=== PATIENT | female | born 1975 | race Caucasian/White ===

== ENCOUNTER 2023-06-14 08:17 | Emergency (ER) | payer BC, SELFPAY ==
[2023-06-14] VITALS (7 sets, daily range): BP systolic 109–126; BP diastolic 63–76; PULSE 71–82; RESP 18; TEMP 36.8; O2SAT 96–99; BMI 30.4
--- NOTE | 2023-06-14 08:45 | PC.NURSE ---
Pt reports new urinary retention begining april 23. At that time pt went to [facility] and had a catheter placed. She was seen for follow up a week later and catheter removed with referral to urology. Pt reports unable to empty her bladder starting yesterday evening.
--- NOTE | 2023-06-14 09:27 | ED_ITS ---
HPI - Female Genitourinary General Chief complaint: Urogenital-Female Stated complaint: bladder retention Time Seen by Provider: 06/14/23 08:27 Source: patient Mode of arrival: Ambulatory History of Present Illness HPI Narrative: 47-year-old female presents for urinary retention since this morning. Patient has pending a referral [facility] urology for unexplained intermittent urinary retention, saying that her urologist has not been able to find a definitive cause of her retention. She states April she had a catheter for several days, but it was subsequently removed. Patient states she has been able to urinate normally until this morning. Related Data Allergies Allergy/AdvReac Type Severity Reaction Status Date / Time codeine Allergy Severe Anaphylaxis Verified 06/14/23 10:09 Review of Systems Review of Systems Narrative: Negative except as noted above Patient History alcohol intake frequency: a few times a week Alcohol type: wine Substance Use Type: does not use Exam Initial Vital Signs Initial Vital Signs: Vital Signs Temperature 98.2 F 06/14/23 08:25 Pulse Rate 81 06/14/23 08:25 Respiratory Rate 18 06/14/23 08:25 Blood Pressure 122/72 06/14/23 08:25 Pulse Oximetry 98 06/14/23 08:25 Oxygen Delivery Method Room Air 06/14/23 08:25 Const: Awake, alert, no acute distress, nontoxic appearing Cardiac: regular rate, regular rhythm RESP: unlabored, clear bilaterally, no wheezing GI: Atraumatic, soft, nontender : Angelo in place draining clear yellow urine Skin: Warm, Dry, intact, no rashes Neuro: AO x3, CN II-XII grossly intact, moves all extremities Course Vital Signs Vital signs: Vital Signs - 8 hr 06/14/23 08:25 06/14/23 08:43 06/14/23 08:43 Temperature 98.2 F Pulse Rate 81 78 Respiratory Rate 18 Blood Pressure 122/72 122/72 Pulse Oximetry 98 98 Oxygen Delivery Method Room Air 06/14/23 09:00 06/14/23 09:00 06/14/23 09:30 Temperature Pulse Rate 82 80 Respiratory Rate Blood Pressure 109/73 Pulse Oximetry 99 97 Oxygen Delivery Method Room Air 06/14/23 09:30 06/14/23 10:00 06/14/23 10:00 Temperature Pulse Rate 71 Respiratory Rate Blood Pressure 110/65 109/63 Pulse Oximetry 97 Oxygen Delivery Method Room Air 06/14/23 10:30 06/14/23 10:52 06/14/23 10:52 Temperature Pulse Rate 72 71 Respiratory Rate Blood Pressure 126/76 Pulse Oximetry 96 99 Oxygen Delivery Method Room Air MDM - Female Genitourinary Differential Diagnosis Differential diagnosis: Likely urinary tract infection, cystitis and dysmenorrhea MDM Narrative Medical decision making narrative: Urinary retention in patient with history of this condition. Pitting referral to [facility] urology since her current urologist has not been able to find a cause for her intermittent retention. Angelo placed with drainage of clear yellow urine. Patient reported feeling much better. She will call [facility] to see if she can make a follow up appointment Discharge Plan Departure Patient Disposition: Home Clinical Impression: Acute urinary retention Instructions: DI for Urinary Retention in Women Activity Restrictions/Additional Instructions: Follow up with your specialists Stand Alone Forms: Patient Portal/API
== END 2023-06-14 10:55 | disposition home or self-care (01) ==
PROVIDERS: Emergency Provider Emergency Medicine
DX: R33.8 Other retention of urine (principal)
CPT/HCPCS: 51798; 99283